=== PATIENT | female | born 1985 | race Caucasian/White ===

== ENCOUNTER 2021-06-08 07:08 | Outpatient (CLI) | payer OTHER ==
[2021-06-08] MEDS ORDERED: GADOBUTROL 15 MMOL/15 ML VIAL ONE (07:29)
--- NOTE | 2021-06-08 09:29 | MRI Report ---
PROCEDURE: Brain W/WO INDICATIONS: HEADACHE CONTRAST: IV CONTRAST: Gadavist ml: 8.1 TECHNIQUE: Noncontrast axial T1 spin echo, axial T2 fast spin echo, sagittal and axial FLAIR, coronal T2 fast sp in echo, axial gradient echo, axial diffusion and ADC through the brain. After the administration of contrast, axial and coronal T1 spin echo with fat saturation through the brain. COMPARISON: None. FINDINGS: Image quality: Excellent. CSF spaces: Basal cisterns are patent. There is a left temporal arachnoid cyst which measures approx imately 3.9 x 4.6 x 5.5 cm. No extra-axial fluid collections. Ventricles are normal in size and shap e. Brain: No midline shift. No intracranial bleeds or masses. No abnormal intracranial enhancement. There is cerebral volume loss for age. There is periventricular white matter chronic small vessel is chemic change. The brainstem appears normal. Diffusion-weighted images demonstrate no acute ischemi c insults. No chronic ischemic insults. Normal intravascular flow voids are present. Skull and face: Calvarial marrow is normal in signal. Orbits appear normal. Sinuses: Bilateral mild inferior maxillary sinus mucosal thickening. No air-fluid levels. IMPRESSION: 1. Large left temporal/middle cranial fossa arachnoid cyst. 2. Mild chronic sinus disease. 3. Otherwise unremarkable study. Normal appearing brain parenchyma. No acute stroke, hemorrhage, or s olid mass. Reviewed by: Rob Ch MD on 06/08/2021 9:28 AM PDT Approved by: Rob Ch MD on 06/08/2021 9:28 AM PDT Station ID: [id number]
[2021-06-08] MEDS ORDERED: GADOBUTROL 15 MMOL/15 ML VIAL IVP ONE (16:02)
== END 2021-06-08 07:09 | disposition home or self-care (01) ==
LOC: DI 07:08
PROVIDERS: ATTEND Student in an Organized Health Care Education/Training Program
DX: G93.0 Cerebral cysts (principal); J32.0 Chronic maxillary sinusitis
CPT/HCPCS: 70553; A9585

== ENCOUNTER 2022-07-28 13:44 | Outpatient (CLI) | payer OTHER ==
[~2022-07-28 13:44] MED LIST: GADOBUTROL 10 MMOL/10 ML VIAL ONE
[2022-07-28] MEDS ORDERED: GADOBUTROL 10 MMOL/10 ML VIAL IVP ONE (14:36)
--- NOTE | 2022-07-30 09:22 | MRI Report ---
PROCEDURE: BRAIN W/WO INDICATIONS: CEREBRAL CYSTS TECHNIQUE: Noncontrast axial T1 spin echo, axial T2 fast spin echo, sagittal and axial FLAIR, coronal T2 fast sp in echo, axial gradient echo, axial diffusion and ADC through the brain. After the administration of contrast, axial and coronal T1 spin echo with fat saturation through the brain. COMPARISON: 06/08/2021 FINDINGS: Unchanged left middle cranial fossa arachnoid cyst and displacement of the left anterior temporal lob e. No findings of mass effect or midline shift otherwise. Stable ventricular caliber and position. Th e basilar cisterns are patent. No expected intracranial susceptibility or enhancement. No restricted diffusion. No gross orbital abnormality. Mild maxillary sinus and ethmoid air cell mucosal thickening . Paranasal sinuses otherwise clear. No mastoid air cell effusion. IMPRESSION: Unchanged left middle cranial fossa arachnoid cyst. Reviewed by: Rob Gagnon MD on 07/30/2022 9:20 AM PST Approved by: Rob Gagnon MD on 07/30/2022 9:20 AM PST Station ID: [id number]
== END 2022-07-28 13:45 | disposition home or self-care (01) ==
LOC: DI 13:44
PROVIDERS: ATTEND Nurse Practitioner Family
DX: G93.0 Cerebral cysts (principal)
CPT/HCPCS: 70553; A9585